=== PATIENT | male | born 1945 | race Caucasian/White ===

== ENCOUNTER → 2023-09-09 09:13 | Outpatient (REF) | payer OTHER, SELFPAY | LOC: HWRCS 09:13 | PROVIDERS: ATTENDING PHYSICIAN Internal Medicine Cardiovascular Disease; FAMILY PHYSICIAN Family Medicine | DX: I25.2 Old myocardial infarction (principal) | CPT/HCPCS: 93306 ==

== ENCOUNTER 2024-03-03 13:18 | Emergency (ER) | payer OTHER, SELFPAY ==
[2024-03-03 13:27] VITALS: BP 110/70
--- NOTE | 2024-03-03 13:29 | ED.GENMED ---
ED Provider Triage
<Cindy Cain PA-C - Last Filed: 03/03/24 13:34>
-
Patient seen by provider in Triage?: Seen in Triage
Attestation: A medical screening examination has been initiated by a qualified medical provider. Based on the assessment performed at this time, it has been determined that an emergent medical condition may exist and the patient has been informed
that further medical evaluation and possible additional diagnostic testing may be needed.
HPI: 78yoM here with intermittent sharp L sided chest pain x 1 week. Worse with coughing and movement. Not exertional or pleuritic. Hx of CAD, [address], follows with Dr. Nice.
GENERAL: Alert , in no apparent distress
EYE: No visual abnormalities.
NECK: Trachea midline
ENT: No visible abnormalities.
LUNGS: No acute respiratory distress
NEUROLOGICAL: Alert and oriented
SKIN: Skin intact. No visible changes.
MUSCULOSKELETAL: Moving extremities normally
PSYCH: Normal and appropriate interaction.
This is a medical evaluation conducted in person to initiate diagnostic evaluation and provide initial therapeutics. Please see further documentation by the treating clinician.
No ischemic changes on EKG. Cardiac labs and CXR ordered.
History of Present Illness
<Cindy Cain PA-C - Last Filed: 03/03/24 13:34>
General
Chief Complaint: Chest Pain
Time Seen by Provider: 03/03/24 16:45
<Anderson Graves DO - Last Filed: 03/03/24 18:08>
History of Present Illness
History of Present Illness:
TIME OF INITIAL ENCOUNTER: 4:50 PM
HPI: The patient presents with chest discomfort intermittently over the past week. He was seen by his general adjuster, Dr. Estephanie Nice 8 days ago with a normal EKG and then 7 days ago had intermittent episodes of lower chest wall pain. When he
had a heart attack in 2019 it was a diffuse pressure and this feels nothing like the time he had a heart attack. However yesterday morning, he had an episode of diaphoresis without chest pain. His symptoms sometimes worsen when he bends over or
moves suddenly.
EXAM:
GENERAL: Well appearing in no distress
HEENT: Moist oral mucosa
CARDIOVASCULAR: No murmurs, normal heart rate, regular rhythm, minimal if any left lower chest wall tenderness
PULMONARY: No respiratory distress, breath sounds are clear and equal
ABDOMEN: Soft with no peritoneal signs, no tenderness
NEUROLOGIC: Excellent strength all extremities, no coordination deficits
PSYCHIATRIC: Appropriate mental status, normal insight and judgement
EXTREMITIES: Nontender, no edema, moves all extremities equally
SKIN: No rash, no lesions
NUMBER AND COMPLEXITY OF PROBLEMS ADDRESSED AT THE ENCOUNTER
� Chronic conditions affecting care: High blood pressure, hyperlipidemia, CAD/TX, GERD, diverticular disease
� Acute Exacerbation and/or Progression of Chronic Illness: This is an acute problem
� Differential Diagnosis includes: Chest wall strain, ACS unlikely, no evidence of STEMI
AMOUNT AND/OR COMPLEXITY OF DATA TO BE REVIEWED AND ANALYZED
� I performed an independent evaluation of and my interpretation is:
EKG: Sinus 71, inferior Q waves are old, nonspecific ST abnormality
CT:
X-rays: Chest x-ray shows no acute abnormality
Laboratory Studies: White count and hemoglobin are normal, bicarb 21, BUN 23, creatinine 1.0, troponin less than 0.012
Other:
� Review of other/old records: I reviewed echo from August 2023 which showed an EF of 60 to 65% and no regional wall motion abnormalities
� Clinical information was obtained by an independent historian: I spoke to at bedside
� Prescriptions/Medications Considered but not given:
� Further testing considered but not performed:
RISK OF COMPLICATIONS AND/OR MORBIDITY OR MORTALITY OF PATIENT MANAGEMENT
� Social determinants of health affecting care: Lives at home
� Discussion with other providers: I notified Dr. Nice of the patient's presentation�she suspects this is more of a musculoskeletal etiology and recommend PMD follow-up
� Escalation of care including admission/observation vs risk of discharge considered: The patient has been having intermittent chest discomfort for a week that feels nothing like the time he had a heart attack. EKG and troponin
today are normal. He has not had any chest discomfort since this morning.
ANY OTHER UPDATES:
5:30 PM: The patient remains to feel and appears comfortable.
Past History
<Cindy Cain PA-C - Last Filed: 03/03/24 13:34>
Past History
ED Past Medical History: GERD, HTN, Hypercholesterolemia and TX (2019)
ED Past Surgical History: Cardiac (TX with 3 stents 2018) and Other (Subtotal gastrectomy)
Social History
Tobacco: Non-smoker
Alcohol: Occasional
Personal:
Family History
Family History: Other (Brother with TX in his 50s or 60s, mother and brother with liver cancer)
Phy Exam
<Anderson Graves DO - Last Filed: 03/03/24 18:08>
Physical Exam
Physical Exam:
See HPI
Scores
<Anderson Graves DO - Last Filed: 03/03/24 18:08>
Heart Score for Chest Pain Patients
STEMI patient?: Not applicable
Course
<Cindy Cain PA-C - Last Filed: 03/03/24 13:34>
Orders/Labs/Results
Orders:
Orders
03/03/24 13:19
EKG [Electrocardiogram (*1)] Urgent
Reason for Study: Chest Pain
EKG- Treatment ONCE
03/03/24 13:32
CR Chest - 2 Views Urgent
Comment:
Reason For Exam: CP
03/03/24 13:37
Complete Blood Count/With Diff Urgent
Comprehensive Metabolic Panel Urgent
Troponin I Urgent
03/03/24 16:47
Electrocardiogram (*1) Urgent
Reason for Study: Chest Pain
EKG- Treatment ONCE
Abnormal Lab Results
03/03/24
13:37
RBC 4.46 L 10^6/uL
(4.70-6.10)
MCV 98.2 H fL
(80.0-94.0)
MCH 35.2 H pg
(27.0-31.0)
Absolute Lymphs (auto) 0.3 L 10^3/uL
(1.2-3.4)
Neutrophils % 90.9 H %
(42.2-75.2)
Lymphocytes % 3.6 L %
(20.5-51.1)
Chloride 108 H mmol/L
(98-107)
Carbon Dioxide 21 L mmol/L
(22-30)
BUN 23 H mg/dl
(9-20)
Glucose 130 H mg/dl
(70-99)
03/03/24 13:37
03/03/24 13:37
Vital Signs
Initial and Last Documented VS:
Initial Vital Signs
Temp Pulse Resp BP Pulse Ox
36.9 C 90 16 110/70 100
03/03/24 13:27 03/03/24 13:27 03/03/24 13:27 03/03/24 13:27 03/03/24 13:27
Last Documented Vital Signs
Temp Pulse Resp BP Pulse Ox
36.9 C 73 17 138/67 96
03/03/24 13:27 03/03/24 17:36 03/03/24 17:36 03/03/24 17:36 03/03/24 17:36
<Anderson Graves, DO - Last Filed: 03/03/24 18:08>
Orders/Labs/Results
Orders:
Orders
03/03/24 13:19
EKG [Electrocardiogram (*1)] Urgent
Reason for Study: Chest Pain
EKG- Treatment ONCE
03/03/24 13:32
CR Chest - 2 Views Urgent
Comment:
Reason For Exam: CP
03/03/24 13:37
Complete Blood Count/With Diff Urgent
Comprehensive Metabolic Panel Urgent
Troponin I Urgent
03/03/24 16:47
Electrocardiogram (*1) Urgent
Reason for Study: Chest Pain
EKG- Treatment ONCE
Abnormal Lab Results
03/03/24
13:37
RBC 4.46 L 10^6/uL
(4.70-6.10)
MCV 98.2 H fL
(80.0-94.0)
MCH 35.2 H pg
(27.0-31.0)
Absolute Lymphs (auto) 0.3 L 10^3/uL
(1.2-3.4)
Neutrophils % 90.9 H %
(42.2-75.2)
Lymphocytes % 3.6 L %
(20.5-51.1)
Chloride 108 H mmol/L
(98-107)
Carbon Dioxide 21 L mmol/L
(22-30)
BUN 23 H mg/dl
(9-20)
Glucose 130 H mg/dl
(70-99)
03/03/24 13:37
03/03/24 13:37
Vital Signs
Initial and Last Documented VS:
Initial Vital Signs
Temp Pulse Resp BP Pulse Ox
36.9 C 90 16 110/70 100
03/03/24 13:27 03/03/24 13:27 03/03/24 13:27 03/03/24 13:27 03/03/24 13:27
Last Documented Vital Signs
Temp Pulse Resp BP Pulse Ox
36.9 C 73 17 138/67 96
03/03/24 13:27 03/03/24 17:36 03/03/24 17:36 03/03/24 17:36 03/03/24 17:36
<Anderson Graves DO - Last Filed: 03/03/24 18:08>
*Critical Care Note
Total Time (30-74mins, 75-104mins- exclusive of procedures): Not Applicable
ED Attending Note
<Cindy Cain PA-C - Last Filed: 03/03/24 13:34>
-
Portions of this chart may have been created with voice recognition software.� Occasional wrong word or��sound alike� substitutions may have occurred due to the inherent limitations of voice recognition software.
Discharge Plan
Departure
Patient Disposition: Home (Routine Discharge)
Date of Disposition: 03/03/24
Time of Disposition: 17:25
Patient with high blood pressure during this ER visit?: Yes
Discharge Problem:
Chest pain
Prescriptions:
No Action
losartan [Cozaar] 100 MG tablet
100 mg PO DAILY
metoprolol succinate 25 MG tablet extended release 24 hr
25 mg PO DAILY Qty: 30 5RF
atorvastatin 40 MG tablet
40 mg PO DAILY
amlodipine 5 MG tablet
2.5 mg PO DAILY
aspirin 81 MG tablet,chewable
81 mg PO HS
clopidogrel [Plavix] 75 mg Tablet
75 mg PO DAILY
guar gum Packet
1 tbsp PO DAILY
famotidine [Pepcid] 20 mg Tablet
20 mg PO HS
tamsulosin 0.4 mg Capsule
0.4 mg PO HS
docusate sodium [Colace] 100 mg Capsule
100 mg PO HS
escitalopram oxalate 5 mg Tablet
2.5 mg PO DAILY
isosorbide mononitrate 30 mg Tablet Extended Release 24 Hr
30 mg PO DAILY
Referrals:
Damián Morillo MD [Family Provider] -
Estephanie Nice MD [Active] - Follow up in 1 week
Activity Restrictions/Additional Instructions:
I notified Dr. Nice of your symptoms today. EKG and cardiac blood work is unremarkable. She thought that this could be just coming from the chest wall. Chest x-ray is normal. She recommends that you follow with your primary care doctor but
I think would still be a good idea to follow-up with her as well.
Interventions
Interventions:
*Risk Screen - Suicide Last Done: 03/03/24 13:27
*General Assessment Last Done: 03/03/24 13:27
*Neglect/Abuse Screening Last Done: 03/03/24 17:36
*ED COVID-19 Vaccine History Last Done: 03/03/24 13:27
*Nursing Disposition Last Done: 03/03/24 17:36
ED- Cardiac Assessment Last Done: 03/03/24 17:32
Discharge Date and Time
Discharge Date/Time: 03/03/24 17:37
Print Language: [place]
[2024-03-03 13:46] LABS: % Basophils 0.6 % (0-2); % Eosinophils 0.9 % (0-6); % Immature Granulocytes 0.1 % (0-0.5); % Lymphocytes 3.6 % (20.5-51.1); % Monocytes 3.9 % (1.7-9.3); % Neutrophils 90.9 % (42.2-75.2); Absolute Eosinophils 0.1 10^3/uL (0-0.7); Absolute Lymphocytes 0.3 10^3/uL (1.2-3.4); Absolute Monocytes 0.3 10^3/uL (0.1-0.6); Absolute Neutrophils 6.2 10^3/uL (1.4-6.5); Hematocrit 43.8 % (39.0-52.0); Hemoglobin 15.7 g/dL (13.0-18.0); Mean Corp Hgb Conc. 35.8 g/dL (33.0-37.0); Mean Corpuscular Hgb 35.2 pg (27.0-31.0); Mean Corpuscular Volume 98.2 fL (80.0-94.0); Mean Platelet Volume 9.2 fL (7.4-10.4); Nucleated Red Blood Cells % 0 % (-); Platelet Count 165 10^3/uL (130-400); Red Blood Cell Count 4.46 10^6/uL (4.70-6.10); Red Cell Dist. Width 12.4 % (11.5-14.5); White Blood Cell Count 6.9 10^3/uL (4.8-10.8)
[2024-03-03 14:11] LABS: Troponin I < 0.012 ng/ml
[2024-03-03 14:16] LABS: ALT (SGPT) 26 U/L (0-50); AST (SGOT) 23 U/L (17-59); Albumin 3.9 g/dl (3.5-5.0); Alkaline Phosphatase 67 U/L (38-126); Blood Urea Nitrogen 23 mg/dl (9-20); Calcium 8.7 mg/dl (8.4-10.2); Carbon Dioxide 21 mmol/L (22-30); Chloride 108 mmol/L (98-107); Glucose 130 mg/dl (70-99); Potassium 4.2 mmol/L (3.5-5.1); Sodium 137 mmol/L (135-145); Total Bilirubin 0.8 mg/dl (0.2-1.3); Total Protein 6.5 g/dl (6.3-8.2); eGFR > 60.00
[2024-03-03 17:32] VITALS: BP 138/67
[2024-03-03 17:36] VITALS: BP 138/67
== END 2024-03-03 17:37 | disposition home or self-care (01) ==
LOC: EMR 13:18
PROVIDERS: Physician Assistant; EMERGENCY PHYSICIAN Emergency Medicine; FAMILY PHYSICIAN Family Medicine
DX: R07.89 Other chest pain (principal); I10 Essential (primary) hypertension
CPT/HCPCS: 99285; 71046; 80053; 84484; 85025; 93005

== ENCOUNTER 2024-08-14 09:32 | Emergency (ER) | payer OTHER, SELFPAY ==
[2024-08-14 09:33] VITALS: BP 183/88
[2024-08-14 10:42] VITALS: BP 198/88
--- NOTE | 2024-08-14 10:45 | ED.GENMED ---
History of Present Illness
General
Chief Complaint: Blood Pressure Problem
Source: patient and spouse
Exam Limitations: none
Time Seen by Provider: 08/14/24 10:33
History of Present Illness
History of Present Illness:
See MDM
Past History
Past History
ED Past Medical History: GERD, HTN, Hypercholesterolemia and [place] (2019)
ED Past Surgical History: Cardiac ([place] with 3 stents 2018) and Other (Subtotal gastrectomy)
Social History
Tobacco: Non-smoker
Alcohol: Occasional
Personal:
Family History
Family History: Other (Brother with VA in his 50s or 60s, mother and brother with liver cancer)
Phy Exam
Physical Exam
Physical Exam:
See MDM
Course
Orders/Labs/Results
Orders:
Orders
08/14/24 10:44
Electrocardiogram (*1) Urgent
Reason for Study: Hypertension, Benign
EKG- Treatment ONCE
HydrALAZINE [Apresoline] 10 mg IV NOW STA
08/14/24 11:03
Complete Blood Count/With Diff Urgent
Comprehensive Metabolic Panel Urgent
Troponin I Urgent
Abnormal Lab Results
08/14/24
11:03
RBC 4.67 L 10^6/uL
(4.70-6.10)
MCV 98.9 H fL
(80.0-94.0)
MCH 34.9 H pg
(27.0-31.0)
Absolute Lymphs (auto) 0.9 L 10^3/uL
(1.2-3.4)
Lymphocytes % 17.4 L %
(20.5-51.1)
Chloride 109 H mmol/L
(98-107)
Glucose 113 H mg/dl
(70-99)
08/14/24 11:03
08/14/24 11:03
Vital Signs
Initial and Last Documented VS:
Initial Vital Signs
Temp Pulse Resp BP Pulse Ox
97.3 F 66 16 183/88 98
08/14/24 09:33 08/14/24 09:33 08/14/24 09:33 08/14/24 09:33 08/14/24 09:33
Last Documented Vital Signs
Temp Pulse Resp BP Pulse Ox
97.3 F 75 11 161/71 99
08/14/24 09:33 08/14/24 12:00 08/14/24 12:00 08/14/24 12:00 08/14/24 12:00
MDM/Problems Addressed
Differential Diagnosis Includes:
HPI and MDM Narrative:
79-year-old male presenting for evaluation of elevated blood pressure. For the past 2 days, patient has had intermittent head flushing and sweats. Is not exertional. He has been checking his blood pressure and noted that it has been elevated.
Since it was elevated 200/100 earlier this morning, he came in for evaluation. Repeat blood pressure on arrival is 198/88. Patient claims compliance to his medications. Will obtain EKG and blood work to rule out any evidence of endorgan damage.
Will give dose of IV hydralazine. Will increase his amlodipine to 10 mg daily
Physical exam
General: Well appearing and non-toxic
HEENT: protecting airway
Neck: appears supple
CV: No evidence of cyanosis. Regular rate and rhythm
Resp: No accessory muscle use
Abd: Non-distended
Extremities: No deformities. No leg edema
Neuro: alert
Psych: Normal affect
Skin: Intact
Problems Addressed including Acute and Chronic Conditions affecting care:
1. Hypertension
Acuity: acute
Prognosis: stable
Details: Will obtain blood work and EKG to rule out any evidence of endorgan damage. Patient given dose of IV hydralazine
Updates
Blood work without evidence of endorgan damage. Patient feeling better and feels comfortable going home
Differential Diagnosis (but not limited to): Hypertension emergency, essential hypertension
Testing considered: CT head but he denies any headache currently
Drug therapy (if applicable): OTC meds, please see d/c instruction regarding Rx drugs
Amount and/or Complexity of Data Reviewed
Clinical info obtained from: Patient
External data reviewed: N/A
Labs I independently reviewed (but not limited to): Troponin negative
Radiology: N/A
Pulse Ox: not hypoxic
EKG independently reviewed: N/A
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
Critical Care: N/A
Risk of Complication:
Social Determinants of health: Good social support
Discussed with other providers: N/A
Escalation of Care includes Admit/Obs: After being observed in the Emergency Department, pt stable for discharge.
Occasional wrong word or 'sound a like' substitutions may have occurred due to the inherent limitations of voice recognition software. Read the chart carefully and recognize, using context, where substitutions have occurred.
*Critical Care Note
Total Time (30-74mins, 75-104mins- exclusive of procedures): Not Applicable
ED Attending Note
-
Portions of this chart may have been created with voice recognition software.� Occasional wrong word or��sound alike� substitutions may have occurred due to the inherent limitations of voice recognition software.
Discharge Plan
Departure
Patient Disposition: Home (Routine Discharge)
Date of Disposition: 08/14/24
Time of Disposition: 13:18
Patient with high blood pressure during this ER visit?: Yes
Discharge Problem:
Hypertension
Instructions: High Blood Pressure (DC), BLOOD PRESSURE
Prescriptions:
New
amlodipine 10 mg tablet
10 mg PO DAILY Qty: 14 0RF
hydralazine 25 mg tablet
25 mg PO ONCE Qty: 14 0RF
No Action
losartan [Cozaar] 100 MG tablet
100 mg PO DAILY
metoprolol succinate 25 MG tablet extended release 24 hr
25 mg PO DAILY Qty: 30 5RF
atorvastatin 40 MG tablet
40 mg PO DAILY
amlodipine 5 MG tablet
2.5 mg PO DAILY
aspirin 81 MG tablet,chewable
81 mg PO HS
clopidogrel [Plavix] 75 mg Tablet
75 mg PO DAILY
guar gum Packet
1 tbsp PO DAILY
famotidine [Pepcid] 20 mg Tablet
20 mg PO HS
tamsulosin 0.4 mg Capsule
0.4 mg PO HS
docusate sodium [Colace] 100 mg Capsule
100 mg PO HS
escitalopram oxalate 5 mg Tablet
2.5 mg PO DAILY
isosorbide mononitrate 30 mg Tablet Extended Release 24 Hr
30 mg PO DAILY
Referrals:
Damián Morillo MD [Family Provider, Family Practice]
Activity Restrictions/Additional Instructions:
Please return for any worsening symptoms.
You may return at any time if you have further concerns.
Please follow up with your doctor at the first available appointment, preferably this week.
I am increasing your amlodipine to 10 mg a day.
Please take your blood pressure in the middle of the day. If your reading is greater than 160/90, please take a dose of the hydralazine.
Thank you for choosing [facility].
Interventions
Interventions:
*Risk Screen - Suicide Last Done: 08/14/24 11:30
*General Assessment Last Done: 08/14/24 11:30
*Neglect/Abuse Screening Last Done: 08/14/24 11:30
*ED COVID-19 Vaccine History Last Done: 08/14/24 11:30
ED- Cardiac Assessment Last Done: 08/14/24 11:30
ED- Neurological Assessment Last Done: 08/14/24 11:30
ED- Pulmonary Assessment Last Done: 08/14/24 11:30
Discharge Date and Time
Print Language: GREEK
[2024-08-14] MEDS: APRESOLINE 10 MG IV (10:57)
[2024-08-14 11:14] LABS: % Basophils 1.3 % (0-2); % Immature Granulocytes 0.2 % (0-0.5); % Lymphocytes 17.4 % (20.5-51.1); % Monocytes 7.2 % (1.7-9.3); % Neutrophils 71.9 % (42.2-75.2); Absolute Basophils 0.1 10^3/uL (0-0.2); Absolute Eosinophils 0.1 10^3/uL (0-0.7); Absolute Lymphocytes 0.9 10^3/uL (1.2-3.4); Absolute Monocytes 0.4 10^3/uL (0.1-0.6); Absolute Neutrophils 3.9 10^3/uL (1.4-6.5); Hematocrit 46.2 % (39.0-52.0); Hemoglobin 16.3 g/dL (13.0-18.0); Mean Corp Hgb Conc. 35.3 g/dL (33.0-37.0); Mean Corpuscular Hgb 34.9 pg (27.0-31.0); Mean Corpuscular Volume 98.9 fL (80.0-94.0); Mean Platelet Volume 9.4 fL (7.4-10.4); Nucleated Red Blood Cells % 0 % (-); Platelet Count 166 10^3/uL (130-400); Red Blood Cell Count 4.67 10^6/uL (4.70-6.10); Red Cell Dist. Width 12.9 % (11.5-14.5); White Blood Cell Count 5.4 10^3/uL (4.8-10.8)
[2024-08-14 11:30] VITALS: BP 162/68
[2024-08-14 11:38] LABS: Troponin I < 0.012 ng/ml
[2024-08-14 12:00] VITALS: BP 161/71
[2024-08-14 12:02] LABS: ALT (SGPT) 34 U/L (0-50); AST (SGOT) 22 U/L (17-59); Albumin 4.5 g/dl (3.5-5.0); Alkaline Phosphatase 83 U/L (38-126); Blood Urea Nitrogen 15 mg/dl (9-20); Calcium 9.4 mg/dl (8.4-10.2); Carbon Dioxide 27 mmol/L (22-30); Chloride 109 mmol/L (98-107); Glucose 113 mg/dl (70-99); Potassium 4.4 mmol/L (3.5-5.1); Sodium 144 mmol/L (135-145); Total Bilirubin 1.2 mg/dl (0.2-1.3); Total Protein 7.4 g/dl (6.3-8.2); eGFR > 60.00
[2024-08-14 13:00] VITALS: BP 160/78
== END 2024-08-14 13:48 | disposition home or self-care (01) ==
LOC: EMR 09:32
PROVIDERS: EMERGENCY PHYSICIAN Student in an Organized Health Care Education/Training Program; FAMILY PHYSICIAN Family Medicine
DX: I10 Essential (primary) hypertension (principal); E78.00 Pure hypercholesterolemia, unspecified; I25.2 Old myocardial infarction; K21.9 Gastro-esophageal reflux disease without esophagitis; Z80.0 Family history of malignant neoplasm of digestive organs; Z82.49 Family history of ischemic heart disease and other diseases of the circulatory system; Z95.5 Presence of coronary angioplasty implant and graft
CPT/HCPCS: 99283; 96374; 80053; 84484; 85025; 93005